=== PATIENT | female | born 1985 | race African-American/Black ===

== ENCOUNTER 2023-10-22 15:19 | Emergency (ER) | payer SELFPAY ==
[~2023-10-22] VITALS: Ht 160 cm; Wt 54.4 kg
[2023-10-22 15:33] VITALS: O2SAT 98
[2023-10-22 18:30] VITALS: BP 133/72; PULSE 78; RESP 18; TEMP 98.7
== END 2023-10-22 18:37 | disposition home or self-care (01) ==
LOC: ER 15:19
DX: R21 Rash and other nonspecific skin eruption (principal); Z98.890 Other specified postprocedural states
CPT/HCPCS: 99283; 86762; Z7610